=== PATIENT | male | born 1965 | race Two or more races ===

== ENCOUNTER 2021-06-26 19:44 | Emergency (ER) | payer OTHER ==
[~2021-06-26] VITALS: Ht 172.7 cm; Wt 104.3 kg
[2021-06-26 20:09] VITALS: BP 161/91
[2021-06-26] MEDS ORDERED: KETOROLAC TROMETHAMINE INJ 30 MG/ML VIAL ONE (20:28)
[2021-06-26] MEDS ORDERED: KETOROLAC TROMETHAMINE INJ 60 MG/2 ML VIAL IM ONE (20:30)
[2021-06-26] MEDS ORDERED: IBUP-1955 PO (21:26)
== END 2021-06-26 21:42 | disposition home or self-care (01) ==
LOC: ER 19:47
DX: M67.431 Ganglion, right wrist (principal)
CPT/HCPCS: 73110; 96372; 99283; J1885